=== PATIENT | female | born 1970 | race Two or more races ===

== ENCOUNTER 2017-02-14 17:46 | Emergency (ER) | payer OTHER ==
[~2017-02-14] VITALS: Ht 160 cm; Wt 55.3 kg
[2017-02-14 18:09] VITALS: BP 152/107
== END 2017-02-14 23:53 | disposition left against medical advice (07) ==
LOC: ER 17:46
DX: R79.9 Abnormal finding of blood chemistry, unspecified (principal); M79.1 Myalgia; Z53.21 Procedure and treatment not carried out due to patient leaving prior to being seen by health care provider

== ENCOUNTER 2021-11-10 01:48 | Emergency (ER) | payer OTHER ==
[~2021-11-10] VITALS: Ht 152.4 cm; Wt 54.4 kg
[2021-11-10 03:53] LABS: Basophils # (auto) 0 10 ^3/uL (0-0.2); Eosinophils # (auto) 0.2 10 ^3/uL (0-0.8); Eosinophils % (auto) 2.1 % (0.0-7.0); Monocytes # (auto) 0.7 10 ^3/uL (0-1.3); Neutrophils # (auto) 4.5 10 ^3/uL (1.6-8.6); White Blood Cell 8.2 10^3/uL (4.4-10.8)
[2021-11-10 03:56] LABS: Basophils % (auto) 0.4 % (0.0-2.0); Hematocrit 35.1 % (36.0-46.0); Hemoglobin 12.4 g/dL (12.2-16.2); Lymphocytes # (auto) 2.7 10 ^3/uL (0.4-5.4); Lymphocytes % (auto) 33.4 % (10.0-50.0); Mean Corpuscular Hemoglobin 37.8 pg (28.0-32.0); Mean Corpuscular Hgb Conc. 35.4 g/dL (32.0-36.0); Mean Corpuscular Volume 106.9 fL (80.0-100.0); Monocytes % (auto) 8.7 % (0.0-12.0); Neutrophils % (auto) 55.4 % (37.0-80.0); Nucleated Red Blood Cells % 0.1 %; Red Blood Cells 3.29 10^6/uL (4.0-5.20); Red Cell Distribution Width 13.8 % (11.8-14.3)
[2021-11-10 04:07] LABS: Calcium 8.4 mg/dL (8.5-10.1); Potassium 3.6 mmol/L (3.5-5.1)
[2021-11-10 04:15] LABS: Albumin 3.9 g/dL (3.4-5.0); BUN/Creatinine Ratio 14.8; Bilirubin, Total 0.2 mg/dL (0.2-1.0); Total Protein 7.6 g/dL (6.4-8.2)
[2021-11-10 05:23] VITALS: BP 120/72
== END 2021-11-10 07:10 | disposition left against medical advice (07) ==
LOC: EDBD 01:48 → ER 01:53
DX: R51.9 Headache, unspecified (principal); R07.89 Other chest pain; I10 Essential (primary) hypertension; Z53.21 Procedure and treatment not carried out due to patient leaving prior to being seen by health care provider
CPT/HCPCS: 36415; 80053; 83880; 84484; 85025; 93005

== ENCOUNTER 2022-01-02 19:27 | Emergency (ER) | payer OTHER ==
[~2022-01-02] VITALS: Ht 170.2 cm; Wt 81.6 kg
[2022-01-02 19:33] VITALS: BP 128/74
== END 2022-01-02 20:00 | disposition left against medical advice (07) ==
LOC: EDUNIT# 19:27 → EDBD 19:27 → ER 19:27
DX: M25.561 Pain in right knee (principal); Z53.21 Procedure and treatment not carried out due to patient leaving prior to being seen by health care provider